=== PATIENT | female | born 1930 | race African-American/Black ===

== ENCOUNTER 2018-01-26 01:55 | Inpatient (IN) ==
[2018-01-26 03:10] LABS: Basophils % 0.5 % (0.0-0.8); Eosinophils # 0.3 10*3/uL (0.0-0.87); Eosinophils % 2.8 % (0.00-10.9); Hematocrit 39.9 VOL% (35.7-47.0); Hemoglobin 12.3 GM/DL (12.0-16.0); Immature Granulocytes % 0.3 %; Immature Granulocytes Absolute 0.03 #; Lymphocytes # 3.7 10*3/uL (1.4-4.0); Lymphocytes % 41.6 % (21.3-54.2); Mean Corpuscular HGB Conc 30.8 GM/DL (32-36); Mean Corpuscular Hemoglobin 28 PG (27-34); Mean Corpuscular Volume 91.3 FL (87-102); Mean Platelet Volume 10.3 FL (9.6-12.0); Monocytes # 0.7 10*3/uL (0.11-0.8); Monocytes % 7.8 % (1.7-12.7); Neutrophils # 4.2 10*3/uL (1.4-7.4); Platelet Count 220 T/CUMM (130-400); Red Blood Count 4.37 MC/CUMM (3.8-5.5); Red Cell Distribution Width 14.7 % (9.3-17.3); White Blood Count 8.8 T/CUMM (4-12)
[2018-01-26 03:22] LABS: INR 0.9
[2018-01-26 03:40] LABS: Alanine Aminotransferase 16 U/L (13-56); Albumin 3.1 G/DL (3.4-5.0); Alkaline Phosphatase 91 U/L (45-117); Aspartate Amino Transferase 11 U/L (0-37); Bilirubin,Total < 0.39 MG/DL (0.2-1.0); Blood Urea Nitrogen 7 MG/DL (7-18); Calcium 9.1 MG/DL (8.5-10.1); Glucose 114 MG/DL (74-106); Osmolality,Calculated 286.7 MOS/KG (273-304); Potassium 4.1 MMOL/L (3.5-5.1); Sodium 145 MMOL/L (136-145); Total Protein 6.4 G/DL (6.4-8.3)
[2018-01-26 06:37] LABS: Cholesterol 191 MG/DL (50-200); HDL Cholesterol 66 MG/DL (40-60); Risk Ratio 2.89; Triglycerides 72 MG/DL (2-150); Troponin I Only < 0.015 NG/ML (0.00-0.045); VLDL CHOLESTEROL 14.4 MG/DL
[2018-01-26 18:28] LABS: Apearance,Urine CLEAR (Clear); Bilirubin,Urine Negative (Negative); Blood, Urine Negative (Negative); Glucose,Urine (UA) Negative (Negative); Ketones,Urine Negative (Negative); Mucus,Urine Occasional /LPF (Occasional); Nitrite,Urine Negative (Negative); Protein,Urine Negative; RBC,Urine 1 /HPF (0-4); Urine Color Yellow (Yellow); Urine Specific Gravity 1.021 (1.001-1.035); Urine Urobilinogen < 2.0 EU/DL (0.2-1.0); WBC,Urine 1 /HPF (0-6)
[2018-01-27 08:05] LABS: Basophils % 0.3 % (0.0-0.8); Eosinophils # 0.2 10*3/uL (0.0-0.87); Hematocrit 41.7 VOL% (35.7-47.0); Hemoglobin 13.1 GM/DL (12.0-16.0); Immature Granulocytes % 0.2 %; Immature Granulocytes Absolute 0.02 #; Lymphocytes # 3.4 10*3/uL (1.4-4.0); Lymphocytes % 37.7 % (21.3-54.2); Mean Corpuscular HGB Conc 31.4 GM/DL (32-36); Mean Corpuscular Hemoglobin 29 PG (27-34); Mean Platelet Volume 10.4 FL (9.6-12.0); Monocytes # 0.5 10*3/uL (0.11-0.8); Monocytes % 5.6 % (1.7-12.7); Neutrophils # 4.8 10*3/uL (1.4-7.4); Neutrophils % 54.2 % (38.7-73.9); Platelet Count 220 T/CUMM (130-400); Red Blood Count 4.58 MC/CUMM (3.8-5.5); Red Cell Distribution Width 14.6 % (9.3-17.3); White Blood Count 8.9 T/CUMM (4-12)
[2018-01-27 08:20] LABS: Potassium 4.3 MMOL/L (3.5-5.1)
[2018-01-28 05:13] LABS: Basophils % 0.4 % (0.0-0.8); Eosinophils # 0.2 10*3/uL (0.0-0.87); Eosinophils % 2.6 % (0.00-10.9); Hematocrit 38.9 VOL% (35.7-47.0); Hemoglobin 12.3 GM/DL (12.0-16.0); Immature Granulocytes % 0.4 %; Immature Granulocytes Absolute 0.03 #; Lymphocytes % 38.1 % (21.3-54.2); Mean Corpuscular HGB Conc 31.6 GM/DL (32-36); Mean Corpuscular Hemoglobin 28 PG (27-34); Mean Platelet Volume 10.5 FL (9.6-12.0); Monocytes # 0.5 10*3/uL (0.11-0.8); Monocytes % 6.6 % (1.7-12.7); Neutrophils % 51.9 % (38.7-73.9); Platelet Count 214 T/CUMM (130-400); Red Blood Count 4.37 MC/CUMM (3.8-5.5); Red Cell Distribution Width 14.3 % (9.3-17.3); White Blood Count 7.8 T/CUMM (4-12)
[2018-01-28 05:29] LABS: Calcium 8.5 MG/DL (8.5-10.1)
[2018-01-28 05:30] LABS: Osmolality,Calculated 284.8 MOS/KG (273-304); Potassium 3.5 MMOL/L (3.5-5.1)
[2018-01-30 04:45] LABS: Calcium 9.6 MG/DL (8.5-10.1); Osmolality,Calculated 282.4 MOS/KG (273-304); Potassium 3.6 MMOL/L (3.5-5.1)
[2018-02-02 04:58] LABS: INR 0.9
[2018-02-04 06:03] LABS: Calcium 9.4 MG/DL (8.5-10.1); Osmolality,Calculated 287.1 MOS/KG (273-304); Potassium 3.9 MMOL/L (3.5-5.1)
[2018-02-08 12:06] VITALS: BP 110/68
== END 2018-02-08 14:45 | disposition swing bed (61) | DRG 64 ==
LOC: N.EDINP 01:55 → N.ED 01:55 → N.ICU 05:40 → SUATTDRO 14:57 → N.4E 01-27 18:11
PROVIDERS: ADMIT Internal Medicine; ATTEND Internal Medicine
PROC: EGDWPEG (ICD-10-PCS; 2018-02-02 12:05)